=== PATIENT | female | born 1970 | race Caucasian/White ===

== ENCOUNTER 2020-07-05 20:38 | Emergency (ER) | payer MEDICARE ==
[~2020-07-05] VITALS: Ht 162.6 cm; Wt 59.0 kg
--- NOTE | ~2020-07-05 | PROC ---
[facility] [address] [place] [address] PROCEDURE REPORT Name: KORIN MANNING Room: [facility] Andreas#: [id number] Admission: 07/05/20 Attend Phys: Discharge: 07/05/20 Date of : 74 Report #: [id number] THIS REPORT FOR: cc: FAM - No family physician/PCP FAM - No family physician/PCP ~ [facility],Medical Records Staff For GI report, please see the Provation report in Perceptive 7 content. By: [id number] Records Staff BARTOLO /CIERA
[~2020-07-05 20:38] MED LIST: BACTRIM DS TAB1 EACH PO; BENTYL 20 MG TA20 M1 PO; MACROBID 100 M100 M1 PO; NOHOMEMEDICATIONS; SENNA8.6 MG PO; VICODIN
[2020-07-05 21:21] LABS: ABSOLUTE EOSINOPHILS 0.2 thou/uL (0.0-0.7); ABSOLUTE LYMPHOCYTES 1.4 thou/uL (0.8-5.3); ABSOLUTE MONOCYTES 0.4 thou/uL (0.0-1.2); ABSOLUTE NEUTROPHILS 4.5 thou/uL (1.6-8.1); BASOPHILS 0.5 %; EOSINOPHILS 2.4 %; HEMOGLOBIN 12.7 gm/dL (12.0-15.0); LYMPHOCYTES 21.1 %; MCH 27.6 pg (26.0-34.0); MCHC 32.7 g/dL (28.0-37.0); MCV 84.4 fL (80.0-100.0); MONOCYTES 6.7 %; MPV 8.4 fl. (7.2-11.1); NUCLEATED RBCS 0 /100WBC; PLATELET COUNT* 225 thou/uL (150-400); POLYS 69.3 %; RBC 4.62 mil/uL (4.20-5.00); RDW-CV 14.4 % (10.5-14.5); WBC 6.6 thou/uL (4.0-11.0)
[2020-07-05 21:28] LABS: CREATININE 0.9 mg/dL (0.6-1.3); POTASSIUM 4.2 mmol/L (3.5-5.1)
[2020-07-05 21:33] LABS: ALBUMIN 3.9 g/dL (3.4-5.0); TOTAL BILIRUBIN 0.3 mg/dL (<0.1-1.0); TOTAL PROTEIN 7.5 g/dL (6.4-8.2)
[2020-07-05 22:31] VITALS: BP 115/70
--- NOTE | 2020-07-07 10:30 | CON ---
[address] [address] CONSULTATION Name: KORIN MANNING FRANCISCA PRIYANK Room: [facility].#: [id number] Admission: 07/05/20 Attend Phys: Discharge: 07/05/20 Date of : 74 Report #: [id number] THIS REPORT FOR: cc: FAM - No family physician/PCP FAM - No family physician/PCP ~ Dell Randolph MD DATE OF SERVICE: 07/05/2020 HISTORY OF PRESENT ILLNESS: This is a 50-year-old female presented to ER with food bolus impaction about 2 hours ago and has been unable to keep solids or liquids or saliva down since then. The patient does report intermittent episodes of dysphagia at least for the last 4 years, mostly to solids. Usually this resolved by drinking water, bringing up the food material. She does report occasional hematemesis, but denies any hematochezia or weight loss. PAST MEDICAL HISTORY: Nonsignificant. PAST SURGICAL HISTORY: Leg surgery, multiple, and nose surgery in the past. FAMILY HISTORY: Not relevant. PHYSICAL EXAMINATION: GENERAL: The patient is alert, awake, oriented x 3. HEENT: Pupils are equal, round, reactive to light and accommodation. Mucous membranes are moist. There is no congestion. LUNGS: Clear to auscultation bilaterally. CARDIOVASCULAR: Rate and rhythm regular, S1, S2 present. ABDOMEN: Soft. There is no distention, guarding or rigidity. EXTREMITIES: Warm, well perfused. VITAL SIGNS: Blood pressure 115/70, pulse ox 99%, temperature 36.7, pulse rate 61, respiratory rate 18. LABORATORY DATA: Hemoglobin 12.7, hematocrit 39.0, platelet count 225, WBC count 6.6. Sodium 141, potassium 4.2, chloride 106, bicarbonate 27, BUN 18, creatinine 0.9, total bilirubin 0.3, AST 15, ALT 25, alkaline phosphatase 62. ASSESSMENT AND PLAN: Pleasant 50-year-old female presenting with food bolus impaction. We will proceed with EGD for disimpaction of the food bolus. Further recommendations will be based on the results of the procedure. <ELECTRONICALLY SIGNED> By: Dell Randolph MD 07/07/20 1030 2257 [id number] Randolph MD /nt
--- NOTE | 2020-07-09 18:06 | PATH ---
[facility] [address] [place] [address] PATHOLOGY RPT PROCEDURE Name: KORIN VARGAS FRANCISCA PIERREAE Room: [facility] Andreas#: [id number] Admission: 07/05/20 Date of : 74 Discharge: 07/05/20 Report #: [id number] Path Case #: [id number] Accession Number: [id number] . 01 Material submitted: . esophagus - ESOPHAGEAL BIOPSY R/O EOSINOPHILIC ESOPHAGITIS . 01 Clinical history: . FOOD BOLUS . 02 Diagnosis: Esophageal biopsy: - Mild chronic esophagitis typical of reflux, without significant eosinophilia. See comment. LBQ 07/09/2020 1405 Local . 02 Comment: Eosinophils average less than 2 per high power field and therefore eosinophilic (allergic) esophagitis is unlikely. (GEOVANNA/db; 07/09/2020) . 02 Electronically signed: . Geovani Self MD, Pathologist NPI- [id number] . 01 Gross description: . The specimen is received in formalin, labeled "Korin Vargas esophageal biopsy". Received are two segments of pale arnold soft tissue ranging in size from 0.3 to 0.6 cm in maximum dimensions. The specimen is submitted entirely in cassette A1. (CAA; 07/08/2020) QAC/QAC 07/08/2020 1336 Local . 02 Pathologist provided ICD-10: K20.90 . 02 CPT . 887099 Specimen Comment: A courtesy copy of this report has been sent to [phone] Specimen Comment: [id number] Specimen Comment: Report sent to / DR HUDDLESTON Performed at: [address] [id number] MD Duran Mann MD Phone: [phone] Performed at: [address] [address] PATHOLOGY RPT PROCEDURE Name: KORIN VARGAS FRANCISCA PRIYANK Room: [facility]#: [id number] Admission: 07/05/20 Date of : 74 Discharge: 07/05/20 Report #: [id number] Path Case #: [id number] [address] [place], [place] [id number] MD Geovani Self MD Phone: [phone]
== END 2020-07-05 22:32 | disposition still patient (30) ==
LOC: M.ERS 20:38 → M.GI 20:38 → M.ERS 22:32
PROVIDERS: Physician Assistant
DX: T18.128A Food in esophagus causing other injury, initial encounter (principal); Z20.822 Contact with and (suspected) exposure to COVID-19; Z88.5 Allergy status to narcotic agent; X58.XXXA Exposure to other specified factors, initial encounter; Y93.89 Activity, other specified; Y92.89 Other specified places as the place of occurrence of the external cause; Y99.8 Other external cause status